=== PATIENT | male | born 1950 ===

== ENCOUNTER 2020-10-02 10:21 | Outpatient (REF) | payer OTHER, SELFPAY ==
[2020-10-02 16:01] LABS: Prostate Specific Antigen 0.76 ng/mL (<0.05-4.0)
== END 2020-10-02 10:22 | disposition home or self-care (01) ==
LOC: HO.10HDL 10:21
PROVIDERS: Visit Provider Urology
DX: C61 Malignant neoplasm of prostate (principal); Z12.5 Encounter for screening for malignant neoplasm of prostate
CPT/HCPCS: 84153

== ENCOUNTER → 2020-10-30 15:45 | Outpatient (BNVA) | payer MEDICARE, SELFPAY | PROVIDERS: PCP Internal Medicine; Referring Provider Internal Medicine; Visit Provider Urology | DX: Z76.89 Persons encountering health services in other specified circumstances (principal) | CPT/HCPCS: Q3014 ==

== ENCOUNTER 2021-12-02 10:13 | Outpatient (REF) | payer MEDICARE, SELFPAY ==
[2021-12-02 14:06] LABS: Prostate Specific Antigen 0.72 ng/mL (<0.05-4.0)
== END 2021-12-02 10:14 | disposition home or self-care (01) ==
LOC: HO.10HDL 10:13
PROVIDERS: Visit Provider Urology
DX: C61 Malignant neoplasm of prostate (principal)
CPT/HCPCS: 36415; 84153

== ENCOUNTER → 2021-12-10 09:25 | Outpatient (BNVA) | payer MEDICARE, SELFPAY | PROVIDERS: PCP Internal Medicine; Visit Provider Urology | DX: Z13.89 Encounter for screening for other disorder (principal) | CPT/HCPCS: Q3014 ==

== ENCOUNTER 2022-12-16 08:50 | Outpatient (REF) | payer MEDICARE, SELFPAY | END 2022-12-16 08:51 | disposition home or self-care (01) | LOC: HO.10HDL 08:50 | PROVIDERS: Visit Provider Urology | DX: Z12.5 Encounter for screening for malignant neoplasm of prostate (principal); C61 Malignant neoplasm of prostate | CPT/HCPCS: 36415; 84153 ==

== ENCOUNTER → 2022-12-23 13:18 | Outpatient (BNVA) | payer MEDICARE, SELFPAY | PROVIDERS: PCP Internal Medicine; Visit Provider Urology | DX: N20.0 Calculus of kidney (principal); C61 Malignant neoplasm of prostate | CPT/HCPCS: 99212 ==

== ENCOUNTER 2023-12-23 13:22 | Outpatient (AMB) | payer MEDICARE, MEDICAID, SELFPAY ==
--- NOTE | 2023-12-23 13:23 | A.OFFVIS_ITS ---
Intake Intake Visit Reasons: 1Y PSA(set) Intake Note: Patient is present for PSA Follow Up Urology Med: None Antibiotic Allergy: None Blood Thinner: None Chief Technology Officer Required: Yes Chief Technology Officer Language: Bolivian Information Interpreted: non-clinical & clinical Accompanied by: Self / Same As Patient Allergies No Known Allergies Allergy (Verified 12/23/23 13:23) Medication List - Last Reconciled 12/23/23 by Elian Rivera MD amlodipine 10 mg PO DAILY atorvastatin mg PO blood sugar diagnostic As directed cyclobenzaprine 5 mg PO BEDTIME PRN flu vacc [id number](65yr up)-PF mL IM glipizide 0 mg PO lancets As directed losartan 25 mg PO DAILY metformin 850 mg PO BID metformin 500 mg PO BID mometasone 0.1% appl topical BID nabumetone 500 mg PO BID peg 3350-electrolytes [id number] -5.86 gram mL PO HPI HPI Comments History of Present Illness Details Zaheer is a pleasant male. He is a patient of Dr. Little. He is seen for the following urologic conditions - prostate cancer Telemedicine Evaluation 15 min Consultation [employer] Leo Video attempted Bolivian translation provided in office by qualified medical practice assistant Yearly evaluation - PSA stable No associated symptomatology, cystitis, urgency, frequency Continue yearly follow-up Prostate cancer: Intermediate risk external beam radiation 2010 Prostate cancer was diagnosed [address] Conley. Diagnosis was reached by needle biopsy, for elevated PSA, PSA at diagnosis 5.4. The Nan grade is 3+4 = 7. TNM Classification of Malignant Tumours (TNM) T1c. The D'Todd (NCCN) risk category is Intermediate Risk (PSA 10-20, Gl 7, T2). Initial therapy included Primary treatment, External beam radiation with short term hormonal ablation [facility] with Dr Montalvo , Additional treatment, Observation. Recent labs included a PSA (prostate-specific antigen) May 2015 0.9, Dec 2015 0.9, Dec 2016 0.8, Jul 2017 0.8, 08/16 0.8, 09/16 0.6 - 09/17 PSA 0.76, 12/20 0.72, 12/21 0.5, 12/22 0.4 Associated conditions erectile dysfunction Yes Therapeutic plan: Continue with surveillance in 1 yr Nephrolithiasis/Urolithiasis: They are here for further evaluation of nephrolithiasis. They present for evaluation of back pain none flank pain none abdominal pain none Urolithiasis was diagnosed last attack in late . The patient previously had kidney stones whose composition w unknown. Laboratory investigations include no recent labs. 24 Hour urine evaluation none encouraged to continue yearly evaluation file. Prior treatment(s) include observation. Current therapeutic plan will be General advice to maintain good fluid intake for urine greater than 1.5 L per day, reduce salt and reduce protein and acid loads was provided. [facility] Medical History Diabetes mellitus, type II HTN (hypertension) Hyperlipidemia Prostate cancer Surgical History History of surgery Social History Patient Tobacco Use Status: Former Tobacco user Review of Systems Const All systems reviewed & are unremarkable except as noted in HPI and below Reports no additional complaints Resp Reports no additional complaints GI Reports no additional complaints Reports as per HPI Musc Reports no additional complaints Physical Exam Telemedicine evaluation Appropriate responses Regular breathing rate and rhythm HEENT Head: Yes normal to inspection Ears: hearing grossly normal bilaterally Eyes General: appearance normal, both eyes and all related structures Neck Neck: Yes normal visual inspection Chest Chest palpation & inspection: normal inspection of the chest Resp Effort & Inspection: normal respiratory effort and able to speak in complete se ntences Assessment & Plan Assessment & Plan (1) Prostate cancer: Code(s): C61 - Malignant neoplasm of prostate Plan Twelve month follow-up PSA Orders: Orders Prostate Specific Antigen 364 Days C61 - Malignant neoplasm of prostate Patient Instructions: Imaging studies, laboratory and physical exam results were discussed and reviewed in detail. No major barriers to patient understanding were identified. An opportunity to ask questions regarding the treatment plan was provided. All questions were answered. The patient expressed understanding and agreement with the above treatment plan. The patient is aware they should contact our office by phone for worsening of their current condition or the appearance of new urologic symptoms. Compliance is encouraged with any medications and followup testing that is ordered. It is a privilege to participate in the urologic care of your patient. If you have any questions or concerns regarding treatment for the above conditions, or other urologic issues, please do not hesitate to contact me. The office telephone contact is [phone]. This note is constructed using voice recognition software. While every effort has been made to ensure accuracy hand woven carpet and rug mender errors may have been included. Yours sincerely, Dr Elian Rivera MD, BRE[facility] - Urology Providers of Expert, Compassionate Care for the Genitourinary System Telehealth Telehealth Location of provider rendering services: practice address Location of patient: address on file Patient Identification confirmed using: Name, : Yes Telehealth method: video Patient verbally consented to treatment: Yes Patient verbally consented to billing insurance company: Yes Patient informed of any privacy concerns related to visit: Yes Coding Level of Care Code Tele Est Pt Level 4 (86965) Diagnoses Prostate cancer C61
== END 2023-12-23 13:58 | disposition home or self-care (01) ==
LOC: HO.HUSH 13:22
PROVIDERS: PCP Internal Medicine; Visit Provider Urology
DX: C61 Malignant neoplasm of prostate (principal)
CPT/HCPCS: 99213

== ENCOUNTER → 2023-12-23 13:22 | Outpatient (BNVA) | payer MEDICARE, MEDICAID, SELFPAY | PROVIDERS: PCP Internal Medicine; Visit Provider Urology ==

== ENCOUNTER 2024-11-03 08:41 | Outpatient (REF) | payer OTHER, SELFPAY ==
[2024-11-03 10:25] LABS: Prostate Specific Antigen 0.52 ng/mL (<0.05-4.0)
== END 2024-11-03 08:42 | disposition home or self-care (01) ==
LOC: HO.LAB 08:41
PROVIDERS: PCP Internal Medicine; Visit Provider Urology
DX: C61 Malignant neoplasm of prostate (principal); Z12.5 Encounter for screening for malignant neoplasm of prostate
CPT/HCPCS: 36415; 84153

== ENCOUNTER 2024-11-10 08:22 | Outpatient (AMB) | payer OTHER, SELFPAY ==
--- NOTE | 2024-11-10 08:53 | A.OFFVIS_ITS ---
Intake Visit Reasons: 1y/PSA Intake Note: Patient is present for 1Y PSA Follow Up Urology Med: None Antibiotic Allergy: None Blood Thinner: None Geographic Information System Surveyor Required: Yes Geographic Information System Surveyor Language: Mauritanian Information Interpreted: non-clinical & clinical Accompanied by: Self / Same As Patient Allergies No Known Allergies Allergy (Verified 11/10/24 08:54) HPI Comments Details: Zaheer is a pleasant male. He is a patient of Dr. Little. He is seen for the following urologic conditions - prostate cancer Mauritanian translation provided in office by qualified medical service representative Yearly evaluation - PSA stable 11/21 0.5 No associated symptomatology, cystitis, urgency, frequency Continue yearly follow-up Prostate cancer: Intermediate risk external beam radiation 2010 Prostate cancer was diagnosed [address] Conley. Diagnosis was reached by needle biopsy, for elevated PSA, PSA at diagnosis 5.4. The Nan grade is 3+4 = 7. TNM Classification of Malignant Tumours (TNM) T1c. The D'Todd (NCCN) risk category is Intermediate Risk (PSA 10-20, Gl 7, T2). Initial therapy included Primary treatment, External beam radiation with short term hormonal ablation [facility] with Dr Montalvo , Additional treatment, Observation. Recent labs included a PSA (prostate-specific antigen) May 2015 0.9, Dec 2015 0.9, Dec 2016 0.8, Jul 2017 0.8, 08/16 0.8, 09/16 0.6 - 09/17 PSA 0.76, 12/20 0.72, 12/21 0.5, 12/22 0.4, 11/21 0.5 Associated conditions erectile dysfunction Yes Therapeutic plan: Continue with surveillance in 1 yr Nephrolithiasis/Urolithiasis: They are here for further evaluation of nephrolithiasis. They present for evaluation of back pain none flank pain none abdominal pain none Urolithiasis was diagnosed last attack in late . The patient previously had kidney stones whose composition w unknown. Laboratory investigations include no recent labs. 24 Hour urine evaluation none encouraged to continue yearly evaluation file. Prior treatment(s) include observation. Current therapeutic plan will be General advice to maintain good fluid intake for urine greater than 1.5 L per day, reduce salt and reduce protein and acid loads was provided. [facility] Medical History Diabetes mellitus, type II HTN (hypertension) Hyperlipidemia Prostate cancer Surgical History History of surgery Social History Patient Tobacco Use Status: Former Tobacco user Review of Systems Const Denies chills and Denies fever(s) Card Reports no additional complaints and Denies syncope Resp Denies cough GI Denies abdominal pain and Denies heartburn Reports as per HPI and Denies change in libido Neuro Denies syncope Psych Denies change in libido Endo Denies change in libido Physical Exam Const General: cooperative, healthy appearing, comfortable and no acute distress Orientation/consciousness: patient oriented x3 HEENT Face and sinus: Yes normal facial exam Mouth: moist mucous membranes Neck Neck: Yes normal visual inspection, Yes full ROM and Yes trachea midline Chest Chest palpation & inspection: normal inspection of the chest Resp Effort & Inspection: normal respiratory effort, able to speak in complete sentences and no respiratory distress GI Inspection: Yes normal to inspection Back/Spine/Pelvis Cervical Spine: normal cervical lordosis Thoracic/Lumbar Spine: thoracic and lumbar spine normal to inspection Skin General skin exam: no rashes or lesions noted Neuro General: patient oriented x3, gait normal, tone normal and moves all extremities Extrem General: Yes normal to inspection and Yes capillary refill normal Assessment & Plan Assessment & Plan (1) Prostate cancer: Code(s): C61 - Malignant neoplasm of prostate Category: Medical (2) Nephrolithiasis: Code(s): N20.0 - Calculus of kidney Category: Medical Plan One year follow-up PSA Orders: Orders Prostate Specific Antigen 364 Days C61 - Malignant neoplasm of prostate Patient Instructions: Imaging studies, laboratory and physical exam results were discussed and reviewed in detail. No major barriers to patient understanding were identified. An opportunity to ask questions regarding the treatment plan was provided. All questions were answered. The patient expressed understanding and agreement with the above treatment plan. The patient is aware they should contact our office by phone for worsening of their current condition or the appearance of new urologic symptoms. Compliance is encouraged with any medications and followup testing that is ordered. It is a privilege to participate in the urologic care of your patient. If you have any questions or concerns regarding treatment for the above conditions, or other urologic issues, please do not hesitate to contact me. The office telephone contact is [phone]. This note is constructed using voice recognition software. While every effort has been made to ensure accuracy postdoctoral research associate errors may have been included. Yours sincerely, Dr Elian Rivera MD, [facility] - Urology Providers of Expert, Compassionate Care for the Genitourinary System Coding Level of Care Code Est Pt Level 4 (22022) Diagnoses Prostate cancer C61 Nephrolithiasis N20.0
== END 2024-11-10 09:01 | disposition home or self-care (01) ==
PROVIDERS: PCP Internal Medicine; Visit Provider Urology
DX: C61 Malignant neoplasm of prostate (principal); N20.0 Calculus of kidney
CPT/HCPCS: 99214

== ENCOUNTER → 2024-11-10 08:22 | Outpatient (BNVA) | payer MEDICARE, MEDICAID, SELFPAY | PROVIDERS: PCP Internal Medicine; Visit Provider Urology | DX: C61 Malignant neoplasm of prostate (principal); N20.0 Calculus of kidney | CPT/HCPCS: 99212 ==

== ENCOUNTER 2025-11-01 10:25 | Outpatient (REF) | payer OTHER, SELFPAY ==
--- OUTSIDE RECORDS SUMMARY | 2025-11-01 12:47 | XMS_ITS | Clinical Summary ---
Author Organization 175 [facility] Address [address] [place] [address] Phone Care Team Providers Care Tailor Apprentice Name Role Phone Celina Little MD Primary Care Provider [phone] Allergies Active Allergy Reactions Criticality Noted Date Comments Lisinopril 08/16/2015 Medications acetaminophen (TYLENOL) 500 mg tablet Take 1 Tablet by mouth every 6 hours as needed for Pain for up to 10 days. Active blood-glucose meter misc 1 Device by Does not apply route Once. Active diclofenac (VOLTAREN) 1 % topical gel Apply 1 g topically daily as needed (joint pain). Active fluticasone propionate (FLONASE) 50 mcg/actuation nasal spray 2 Sprays by Each Nare route daily for 360 days. Active ibuprofen (ADVIL,MOTRIN) 600 mg tablet Take 1 tablet by mouth every 12 hours as needed for Pain. Active mometasone (ELOCON) 0.1 % ointment Apply a thin layer topically twice daily. Active senna-docusate (PERICOLACE) 8.6-50 mg per tablet Take 1 tablet by mouth daily for 360 days. Active lancets lancets USE TO TEST BLOOD SUGAR TWICE DAILY Active cholecalciferol (VITAMIN D-3) 50 mcg (2,000 unit) tabletIndication s:Vitamin D deficiency Take 1 tablet (2,000 Units total) by mouth 1 (one) time each day. 90 tablet 3 Active amLODIPine (NORVASC) 10 mg tabletIndication s:Primary hypertension Take 1 tablet (10 mg total) by mouth 1 (one) time each day. 90 tablet 3 Active glipiZIDE (GLUCOTROL) 5 mg tabletIndication s:Type 2 diabetes mellitus without complication, without long-term current use of insulin ([facility] V24, [facility] V28) Take 2 tablets (10 mg total) by mouth See administration instructions. take 2 tablets in the morning and 1 tablet in the evening 270 tablet 1 Active metFORMIN (GLUCOPHAGE) 850 mg tabletIndication s:Type 2 diabetes mellitus without complication, without long-term current use of insulin ([facility] V24, [facility] V28) Take 1 tablet (850 mg total) by mouth 2 (two) times a day with meals. 180 tablet 3 Active atorvastatin (LIPITOR) 40 mg tabletIndication s:Hyperlipidemia , unspecified hyperlipidemia type Take 1 tablet (40 mg total) by mouth 1 (one) time each day. 90 tablet 3 025 Active lidocaine (LIDODERM) 5 % patchIndications :Arthritis,Lumba r stenosis without neurogenic claudication Apply 1 patch topically 1 (one) time each day. Apply to painful area 12 hours per day, remove for 12 hours. 30 each 025 2025 Active losartan (Cozaar) 100 mg tabletIndication s:Primary hypertension Take 1 tablet (100 mg total) by mouth 1 (one) time each day. 30 tablet 3 Active glucose blood test strip Use as instructed 100 each Active glucose blood test stripIndications :Type 2 diabetes mellitus without complication, without long-term current use of insulin ([facility] V24, [facility] V28) Use twice daily to check blood sugars. 100 each Active glucose blood test strip Use to test blood sugar twice daily 024 2024 Discontinued(R eorder) glucose blood test strip 1 Strip by In Vitro route 2 times daily. 024 2024 Discontinued(R eorder) glucose blood test stripIndications :Type 2 diabetes mellitus without complication, without long-term current use of insulin ([facility] V24, [facility] V28) Use as instructed 100 each 3 025 2024 Discontinued(R eorder) glucose blood test stripIndications :Type 2 diabetes mellitus without complication, without long-term current use of insulin ([facility] V24, [facility] V28) Use daily to check blood sugars. 100 each 3 025 2024 Discontinued Active Problems Problem Noted Date Diagnosed Date Lumbar stenosis without neurogenic claudication 08/26/2023 Overview (09/29/2024): Last Assessment & Plan: I reviewed this in detail with the patient and his . So there is fairly mild multilevel stenosis on his MRI, the symptoms are not clearly radicular, they are intermittent and he has no weakness. I do not see a role for surgery and recommended physical therapy particularly because this is worse when he is transitioning from sit to stand or from kneeling to standing. I believe a lot of this is about core strength and endurance. He is agreeable to attending physical therapy and a referral slip was provided. Cough 01/23/2021 Gastroesophageal reflux dise ase with esophagitis without hemorrhage 01/23/2021 Pain of upper abdomen 01/23/2021 Degenerative disc disease, cervical 10/10/2020 Spondylolisthesis of cervical region 10/10/2020 Cervical radiculopathy 09/23/2020 Hyperlipidemia 08/26/2018 Hypertension 08/26/2018 Overview (09/29/2024): Last Assessment & Plan: Today blood pressure is 165/60 6 repeat 11/29/1949 Home readings are less than 135/80. Plan: Continue current medication of amlodipine 10 mg and losartan to 25 mg. Labs ordered. Type 2 diabetes mellitus without complication Overview (08/29/2025): 08/29/25 Regulatory IMO Update Asthma 04/08/2018 Colon polyps 12/16/2016 Umbilical hernia 08/16/2015 GERD (gastroesophageal reflux disease) 4 Arthritis 04/11/2014 Resolved Problems Problem Noted Date Diagnosed Date Resolved Date Chronic obstructive pulmonar y disease ([facility] V24, [facility] V28) 08/26/2018 10/10/2025 Pulmonary interstitial fibro sis ([facility] V24, [facility] V28) 03/16/2017 10/10/2025 Encounters Date Type Department Care Team Description 10/10/2025 1:00 PM EST Office Visit Internal Medicine [address] [phone] Jose Miramontes NP Type 2 diabetes mellitus without complication, without long-term current use of insulin ([facility] V24, [facility] V28) (Primary Dx); Hyperlipidemia, unspecified hyperlipidemia type; Primary hypertension; Vitamin D deficiency; Arthritis; Lumbar stenosis without neurogenic claudication 10/10/2025 Telephone Internal Medicine [address] [phone] Celina Little MD 09/05/2025 2:00 PM EDT Office Visit Internal Medicine [address] [phone] Jose Miramontes NP Type 2 diabetes mellitus without complication, without long-term current use of insulin ([facility] V24, [facility] V28) (Primary Dx); Hyperlipidemia, unspecified hyperlipidemia type; Primary hypertension; Vitamin D deficiency; Arthritis; Lumbar stenosis without neurogenic claudication; Healthcare maintenance 08/07/2025 Telephone Internal Medicine [address] [phone] Celina Little MD 08/06/2025 3:00 PM EDT Office Visit Internal Medicine [address] [phone] Jose Miramontes NP Type 2 diabetes mellitus without complication, without long-term current use of insulin ([facility] V24, [facility] V28) (Primary Dx); Hyperlipidemia, unspecified hyperlipidemia type; Primary hypertension; Vitamin D deficiency; Arthritis; Lumbar stenosis without neurogenic claudication from Last 3 Months Immunizations Immunization Administration Dates Next Due Influenza trivalent, 0.5mL ( Fluad) 65yo and older 09/05/2025,08/24/2022,09/12/2021 Pneumococcal conjugate 13 va lent (Prevnar 13, PCV13) 2mo and older 05/19/2016 Pneumococcal conjugate 20 va lent (Prevnar 20, PCV 20) 2mo and older 08/14/2024 Pneumococcal polysaccharide 23 valent (Pneumovax 23) 2yo and older 12/11/2014 Tdap Tetanus diptheria acell ular pertussis (Boostrix; Adacel) 7yo and older 08/14/2024 Surgical History Surgery Date Site/Laterality Comments TONSILLECTOMY PROCEDURE: HISTORICAL TONSILLECTOMY Medical History Medical History Date Comments Arthritis 04/11/2014 DX:Arthritis Asthma 04/08/2018 DX:Asthma Chronic obstructive pulmonar y disease ([facility] V24, [facility] V28) 08/26/2018 DX:Chronic obstructive pulm onary disease (HCC) Colon polyps 12/16/2016 DX:Colon polyps GERD (gastroesophageal reflux disease) 08/13/2014 DX:GERD (gastroesophageal reflux disease) History of prostate cancer 08/13/2014 DX:Hi story of prostate cancer Hyperlipidemia 08/26/2018 DX:Hyperlipidemi a Hypertension 08/26/2018 DX:Hypertension Pulmonary interstitial fibro sis (CMS/HCC V24, [facility] V28) 03/16/2017 DX:Pulmonary interstitial f ibrosis (HCC) Type 2 diabetes mellitus wit hout complication 08/26/2018 DX:Type 2 diabetes mellitus without complication (HCC) Umbilical hernia 08/16/2015 DX:Umbilical he rnia Social History Tobacco Use Types Packs/Day Years Used Date Smoking Tobacco: Former Smokeless Tobacco: Never Tobacco Cessation:Counseling Given: Not Answered Alcohol Use Standard Drinks/Week Comments No 0 (1 standard drink = 0.6 oz pur e alcohol) Sex and Gender Information Value Date Recorded Sex Assigned at Not on file Legal Sex Male 4:47 AM EST Gender Identity Not on file Sexual Orientation Not on file Obstetrics History Last Filed Vital Signs Vital Sign Reading Time Taken Comments Blood Pressure 132/68 10/10/2025 1:00 PM EST Pulse 60 10/10/2025 1:00 PM EST Temperature 36.7 C (98 F) 10/10/2025 12:59 PM EST Respiratory Rate - - Oxygen Saturation 97% 10/10/2025 12:59 PM EST Inhaled Oxygen Concentration - - Weight 69.6 kg (153 lb 6.4 oz) 10/10/2025 12:59 PM EST Height 167.6 cm (5' 6 ) 09/05/2025 2:06 PM EDT Body Mass Index 24.76 09/05/2025 2:06 PM EDT Plan of Treatment Upcoming Encounters Date Type Department Care Team (Late st Contact Info) Description 03/11/2026 1:30 PM EDT Office Visit Internal Medicine - [place] [address] [place] [phone] Jose Miramontes, CHRISTA [address] [place] [address] Health Maintenance Due Date Last Done Comments Diabetes: Annual Foot Exam 1960 Abdominal Aortic Aneurysm (AAA) Screen 11/07/2022 Hepatitis C Screening 11/07/2022 Medicare Annual Wellness Visit 11/07/2022 Social Influencers of Health Screening 11/07/2022 Falls Risk Assessment 11/12/2024 11/12/2023 Depression Screening 11/29/2024 RSV Immunization Adult Patients (1 - 1-dose 75+ series) 2025 Diabetes: Annual Retina Eye Exam 07/06/2025 07/06/2024 COVID-19 Vaccine () 07/30/2025 08/14/2022, 07/13/2022 Diabetes: Annual Urine Albumin-Creatinine Ratio (uACR) 08/14/2025 08/14/2024 Diabetes: Blood Sugar Control Test (HGBA1C) 09/21/2025 03/22/2025, 09/29/2024, 08/14/2024, Additional history exists Diabetes: Annual GFR (Glomerular Filtration Rate) 03/22/2026 03/22/2025, 09/29/2024, 08/14/2024, Additional history exists Hypertension/CHF/CAD Annual BMP Blood Test 03/22/2026 03/22/2025, 09/29/2024, 08/14/2024, Additional history exists Cholesterol Screening (Lipid Panel) 03/22/2030 03/22/2025, 09/29/2024, 04/13/2024, Additional history exists Colorectal Cancer Screening: Colonoscopy 04/15/2031 04/15/2021 DTaP,Tdap,and Td Vaccines (2 - Td or Tdap) 08/14/2034 08/14/2024 Zoster Vaccines Completed 10/10/2018, 03/24/2018 Pneumococcal Vaccine: 50+ Years Completed 02/18/2025, 08/14/2024, 05/19/2016, Additional history exists Influenza Vaccine Completed 09/05/2025, , 08/24/2022, Additional history exists HIB Vaccines Aged Out No longer eligi ble based on patient's age to complete this topic HPV Vaccines Aged Out No longer eligi ble based on patient's age to complete this topic Hepatitis A Vaccines Aged Out No long er eligible based on patient's age to complete this topic Hepatitis B Vaccines Aged Out No long er eligible based on patient's age to complete this topic IPV Vaccines Aged Out No longer eligi ble based on patient's age to complete this topic MMR Vaccines Aged Out No longer eligi ble based on patient's age to complete this topic Meningococcal ACWY Vaccine Aged Out N o longer eligible based on patient's age to complete this topic Meningococcal B Vaccine Aged Out No l onger eligible based on patient's age to complete this topic RSV Immunization Patients Under 20 months Aged Out No longer eligible based on patient's age to complete this topic Varicella Vaccines Aged Out No longer eligible based on patient's age to complete this topic Procedures Procedure Name Priority Date/Time Associated Diagnosis Comments COMPREHENSIVE METABOLIC PANEL Routine 03/22/2025 8:33 AM EDT Type 2 diabetes mellitus without complication, without long-term current use of insulin ([facility] V24, [facility] V28) HEMOGLOBIN A1C Routine 03/22/2025 8:33 AM EDT Type 2 diabetes mellitus without complication, without long-term current use of insulin ([facility] V24, [facility] V28) LIPID PANEL WITH REFLEX TO DIRECT LDL Routine 03/22/2025 8:33 AM EDT Hyperlipidemia, unspecified hyperlipidemia type URINE ALBUMIN CREATININE RATIO Routine 08/14/2024 DIABETES EYE EXAM Routine 07/06/2024 FALLS RISK ASSESSMENT Routine 11/12/2023 COLONOSCOPY Routine 04/15/2021 from Last 3 Months or Most Recently Relevant to Health Maintenance Results * (ABNORMAL) Lipid panel with reflex to direct LDL (03/22/2025 8:33 AM EDT) Cholesterol 186 0 - 200 mg/dL LAB CHEMISTRY METHOD 03/22/2025 12:31 PM EDT [facility] Triglycerides 90 0 - 150 mg/dL LAB CHEMISTRY METHOD 03/22/2025 12:31 PM EDT [facility] HDL 55 >=40 mg/dL LAB CHEMISTRY METHOD 03/22/2025 12:31 PM EDT [facility] LDL Calculated 113(H) 0 - 100 mg/dL LAB CHEMISTRY METHOD 03/22/2025 12:31 PM EDT [facility] VLDL Cholesterol Leonardo 18 mg/dL LAB CHEMISTRY METHOD 03/22/2025 12:31 PM EDT [facility] Non HDL Chol. (LDL+VLDL) 131 <145 mg/dL LAB CHEMISTRY METHOD 03/22/2025 12:31 PM EDT [facility] Chol/HDL Ratio 3.4 0.0 - 4.4 LAB CHEMISTRY METHOD 03/22/2025 12:31 PM EDT [facility] Blood Venous blood specimen / Unknown Venipuncture / Unknown 03/22/2025 8:33 AM EDT 03/22/2025 11:13 AM EDT us Jose Miramontes NP LAB BLOOD ORDERABLES Final Resul t [facility] [address] [place] [address], * (ABNORMAL) Hemoglobin A1c (03/22/2025 8:33 AM EDT) Hemoglobin A1C 6.9(H) <6.5 % LAB CHEMISTRY METHOD 03/22/2025 2:01 PM [facility] Mean Bld Glu Estim. 151 mg/dL LAB CHEMISTRY METHOD 03/22/2025 2:01 PM [facility] Blood Venous blood specimen / Unknown Venipuncture / Unknown 03/22/2025 8:33 AM EDT 03/22/2025 11:19 AM EDT us Jose Miramontes NP LAB BLOOD ORDERABLES Final Resul t [facility] [address] [place] [address], * (ABNORMAL) Comprehensive metabolic panel (03/22/2025 8:33 AM EDT) [facility] Sodium 138 133 - 145 mmol/L LAB CHEMISTRY METHOD 03/22/2025 12:31 PM [facility] Potassium 4.3 3.5 - 5.5 mmol/L LAB CHEMISTRY METHOD 03/22/2025 12:31 PM [facility] Chloride 105 96 - 110 mmol/L LAB CHEMISTRY METHOD 03/22/2025 12:31 PM [facility] CO2 30 21 - 32 mmol/L LAB CHEMISTRY METHOD 03/22/2025 12:31 PM [facility] Anion Gap 3 3 - 11 LAB CHEMISTRY METHOD 03/22/2025 12:31 PM [facility] Glucose 122(H) 70 - 100 mg/dL LAB CHEMISTRY METHOD 03/22/2025 12:31 PM [facility] BUN 12 5 - 25 mg/dL LAB CHEMISTRY METHOD 03/22/2025 12:31 PM [facility] Creatinine 0.89 0.70 - 1.30 mg/dL LAB CHEMISTRY METHOD 03/22/2025 12:31 PM [facility] eGFR 90 >=60 mL/min/1. 73m2 LAB CHEMISTRY METHOD 03/22/2025 12:31 PM [facility] Comment:Calculation based on the Chronic Kidney Disease Epidemiology Collaboration (CKD-EPI) equation refit without adjustment for race. BUN/Creatinine Ratio 13.5 LAB CHEMISTRY METHOD 03/22/2025 12:31 PM [facility] Calcium 9.3 8.5 - 10.5 mg/dL LAB CHEMISTRY METHOD 03/22/2025 12:31 PM [facility] AST (SGOT) 14 10 - 42 unit/L LAB CHEMISTRY METHOD 03/22/2025 12:31 PM [facility] ALT (SGPT) 15 10 - 60 unit/L LAB CHEMISTRY METHOD 03/22/2025 12:31 PM [facility] Alkaline Phosphatase 79 42 - 121 unit/L LAB CHEMISTRY METHOD 03/22/2025 12:31 PM [facility] Total Protein 7.0 6.0 - 8.0 g/dL LAB CHEMISTRY METHOD 03/22/2025 12:31 PM [facility] Albumin 3.6 3.2 - 5.0 g/dL LAB CHEMISTRY METHOD 03/22/2025 12:31 PM [facility] Total Bilirubin 1.0 0.0 - 1.4 mg/dL LAB CHEMISTRY METHOD 03/22/2025 12:31 PM [facility] Blood Venous blood specimen / Unknown Venipuncture / Unknown 03/22/2025 8:33 AM EDT 03/22/2025 11:13 AM EDT us Jose Miramontes NP LAB BLOOD ORDERABLES Final Resul t [facility] [address] [place] [address], * HM Urine Albumin Creatinine Ratio (08/14/2024) Pathologist [facility] Urine Albumin Creatinine Ratio Abstracted Historical Provider HEALTH MAINTENANCE Final Result * Diabetes Eye Exam (07/06/2024) Pathologist [facility] Diabetes: Annual Retina Eye Exam Abstracted [facility] Provider HEALTH MAINTENANCE Final Result * Falls Risk Assessment (11/12/2023) Pathologist [facility] Falls Risk Assessment Abstracted [facility] Provider HEALTH MAINTENANCE Final Result * Colonoscopy (04/15/2021) Pathologist [facility] Colonoscopy No Interpretation , Abstracted Anatomical Region Laterality Modality Other [facility] Provider HEALTH MAINTENANCE Final Result from Last 3 Months or Most Recently Relevant to Health Maintenance Insurance [employer] MEDICARE Member Subscriber Plan / Payer (Ef fective 2023-Present) Name:Zaheer López Relation to Subscriber:Self Name:Zaheer López Payer ID:[id number] Group ID:[id number] Type:Not on file Address: [address] [facility] [place] [id number] Care Teams Tailor Apprentice Relationship Specialty Start Date End Date Celina Little MD [address] [place] [phone] PCP - General Internal Medicine 10/13/18
[2025-11-01 14:38] LABS: Prostate Specific Antigen 0.85 ng/mL (<0.05-4.0)
== END 2025-11-01 10:26 | disposition home or self-care (01) ==
LOC: HO.10HDL 10:25
PROVIDERS: Visit Provider Urology
DX: C61 Malignant neoplasm of prostate (principal); Z12.5 Encounter for screening for malignant neoplasm of prostate
CPT/HCPCS: 36415; 84153

== ENCOUNTER 2025-11-09 09:22 | Outpatient (AMB) | payer OTHER, SELFPAY ==
--- NOTE | 2025-11-09 09:22 | A.OFFVIS_ITS ---
Intake Visit Reasons: 1Y PSA(set) Intake Note: Reason for Visit: Telehealth PSA Results Urology Meds: None Blood Thinners: None Labs: PSA: 0.85 (11/01/2025) Imaging: None Last PVR: None Group Contract Analyst Required: Yes Group Contract Analyst Language: Key Account Coordinator Services: Group Contract Analyst Present Allergies No Known Allergies Allergy (Verified 11/09/25 09:23) HPI Comments Details: Zaheer is a pleasant male. He is a patient of Dr. Little. He is seen for the following urologic conditions - prostate cancer Telemedicine Evaluation 15 min Consultation [employer] Video [place] Island[place] translation provided in office by qualified medical specialist Yearly evaluation - PSA stable 11/21 0.5, 11/22 0.85 No associated symptomatology, cystitis, urgency, frequency Continue yearly follow-up Prostate cancer: Intermediate risk external beam radiation 2010 Prostate cancer was diagnosed [address] Conley. Diagnosis was reached by needle biopsy, for elevated PSA, PSA at diagnosis 5.4. The Nan grade is 3+4 = 7. TNM Classification of Malignant Tumours (TNM) T1c. The D'Todd (NCCN) risk category is Intermediate Risk (PSA 10-20, Gl 7, T2). Initial therapy included Primary treatment, External beam radiation with short term hormonal ablation [facility] with Dr Montalvo , Additional treatment, Observation. Recent labs included a PSA (prostate-specific antigen) May 2015 0.9, Dec 2015 0.9, Dec 2016 0.8, Jul 2017 0.8, 08/16 0.8, 09/16 0.6 - 09/17 PSA 0.76, 12/20 0.72, 12/21 0.5, 12/22 0.4, 11/21 0.5 Associated conditions erectile dysfunction Yes Therapeutic plan: Continue with surveillance in 1 yr Nephrolithiasis/Urolithiasis: They are here for further evaluation of nephrolithiasis. They present for evaluation of back pain none flank pain none abdominal pain none Urolithiasis was diagnosed last attack in late . The patient previously had kidney stones whose composition w unknown. Laboratory investigations include no recent labs. 24 Hour urine evaluation none encouraged to continue yearly evaluation file. Prior treatment(s) include observation. Current therapeutic plan will be General advice to maintain good fluid intake for urine greater than 1.5 L per day, reduce salt and reduce protein and acid loads was provided. [facility] Medical History Hyperlipidemia HTN (hypertension) Diabetes mellitus, type II Prostate cancer Surgical History History of surgery Social History Patient Tobacco Use Status: Former Tobacco user Review of Systems Const All systems reviewed & are unremarkable except as noted in HPI and below Reports no additional complaints Resp Reports no additional complaints GI Reports no additional complaints Reports as per HPI Musc Reports no additional complaints Physical Exam Telemedicine evaluation Appropriate responses Regular breathing rate and rhythm HEENT Head: Yes normal to inspection Ears: hearing grossly normal bilaterally Eyes General: appearance normal, both eyes and all related structures Neck Neck: Yes normal visual inspection Chest Chest palpation & inspection: normal inspection of the chest Resp Effort & Inspection: normal respiratory effort and able to speak in complete sentences Telehealth Telehealth Telehealth Platform: [employer] Location of provider rendering services: practice address Location of patient: address on file Patient Identification confirmed using: Name, : Yes Telehealth method: video Patient verbally consented to treatment: Yes Patient verbally consented to billing insurance company: Yes Patient informed of any privacy concerns related to visit: Yes Minutes spent on Phone/Video with Pt.: 15 Assessment & Plan Assessment & Plan (1) Prostate cancer: Code(s): C61 - Malignant neoplasm of prostate Category: Medical (2) Nephrolithiasis: Code(s): N20.0 - Calculus of kidney Category: Medical Plan Twelve month follow-up repeat PSA Orders: Orders Prostate Specific Antigen 12 Months C61 - Malignant neoplasm of prostate Patient Instructions: This note is constructed using voice recognition software. While every effort has been made to ensure accuracy numerical control machine tool operator errors may have been included. Imaging studies, laboratory and physical exam results were discussed and reviewed in detail. No major barriers to patient understanding were identified. An opportunity to ask questions regarding the treatment plan was provided. All questions were answered. The patient expressed understanding and agreement with the above treatment plan. The patient is aware they should contact our office by phone for worsening of their current condition or the appearance of new urologic symptoms. Compliance is encouraged with any medications and followup testing that is ordered. It is a privilege to participate in the urologic care of your patient. If you have any questions or concerns regarding treatment for the above conditions, or other urologic issues, please do not hesitate to contact me. The office telephone contact is [phone]. Sincerely, Dr Elian Rivera MD, [facility] - Urology Compassionate Specialist Care for the Genitourinary System Coding Level of Care Code Tele Est Pt Level 4 (83521) Diagnoses Prostate cancer C61 Nephrolithiasis N20.0
== END 2025-11-09 16:25 | disposition home or self-care (01) ==
LOC: HO.HUSH 09:22
PROVIDERS: PCP Internal Medicine; Visit Provider Urology
DX: C61 Malignant neoplasm of prostate (principal); N20.0 Calculus of kidney
CPT/HCPCS: 99213